=== PATIENT | male | born 1960 | race Caucasian/White ===

== ENCOUNTER 2016-07-02 21:48 | Emergency (ER) ==
[2016-07-02] MEDS ORDERED: NITROGLYCERIN SL PRN (21:56)
[2016-07-02] MEDS ORDERED: ASPIRIN PO STA (21:56)
[2016-07-02] MEDS ORDERED: NITROGLYCERIN TOP ONE (21:57)
[2016-07-02 22:13] LABS: MANUAL DIFF NEEDED? NO
[2016-07-02 22:21] LABS: BASO% 0.7 % (0.0-0.8); EOS# 0.34 X1000 (0.0-0.7); EOS% 4.8 % (0.0-10.0); HEMATOCRIT 48.2 % (42.0-52.0); LYMPH# 2.57 X1000 (1.2-3.4); LYMPH% 36.1 % (20.5-51.1); MCH 31.9 PG (27-31); MCHC 33.2 g/dL (33-37); MONO# 0.72 X1000 (0.11-0.59); MONO% 10.1 % (1.7-9.3); MPV 10.5 FL (7.4-10.4); NEUT% 48.3 % (42.2-75.2); PLT 194 X1000 (130-400); RBC 5.02 XMIL (4.7-6.1)
[2016-07-02 22:48] LABS: AGAP 14; ALKALINE PHOSPHATASE 36 U/L (32-122); BUN 19 mg/dL (8-22); CALCIUM 8.8 mg/dL (8.8-10.2); CHLORIDE 100 mmol/L (98-107); CK PROFILE 203 U/L (24-204); COSMO 280; GOT 23 U/L (10-34); GPT 20 U/L (10-44); MAGNESIUM 2.1 mg/dL (1.5-2.7); POTASSIUM 3.9 mmol/L (3.5-5.1); SODIUM 139 mmol/L (136-145); TCO2 25 mmol/L (25-35); TOTAL BILIRUBIN 0.58 mg/dL (0.20-1.00); TOTAL PROTEIN 6.9 g/dL (6.3-8.3)
--- NOTE | 2016-07-02 23:18 | PROVIDER DOCUMENTATION ---
HPI-Chest Pain <Rocio Escalante - Last Filed: 07/03/16 00:29> <Kenneth Kline - Last Filed: 07/03/16 01:13> - General Chief Complaint: Chest Pain Stated Complaint: CP Time Seen by Provider: 07/02/16 22:18 Allergies/Adverse Reactions: Patient Allergies Allergy/AdvReac Type Severity Reaction Status Date / Time No Known Allergies Allergy Verified 07/02/16 22:18 Home Medications: Home Medication List Medication Instructions Recorded Confirmed Last Taken Type Amlodipine Besylate [Norvasc] 5 mg PO DAILY #30 tablet 07/02/16 Unknown Rx - History of Present Illness-CP Nature of Presenting Problem: Pt has had an aching CP for a week that has not gotten any better. He denies N/V , dizziness. The pain doesn't radiate. Pt has gerd and HTN (Kenneth Kline) Review of Systems - Adult - REVIEW OF SYSTEMS - ADULT Constitutional: reports: no symptoms reported. denies: chills, fever, fatique, night sweats, weight gain, weight loss Eyes: reports: no symptoms reported. denies: discharge, dry eyes, decreased vision, blurred vision, double vision, redness Ears, Nose, Mouth & Throat: reports: no symptoms reported. denies: ear discharge, ear pain, hearing loss, nose pain, loose teeth, mouth swelling, hoarseness, throat pain, throat swelling Cardiovascular: reports: see HPI, chest pain. denies: edema, heart murmur, irregular heart rate, orthopnea, palpitations, poor circulation, PND, syncope Respiratory: reports: no symptoms reported. denies: chronic cough, cough, dyspnea on exertion, hemoptysis, pleurisy, shortness of breath, wheezing Gastrointestinal: reports: no symptoms reported. denies: abdominal pain, hematemesis, constipation, diarrhea, frequent heartburn, nausea, poor appetite, rectal bleeding, vomiting Genitourinary: reports: no symptoms reported. denies: dysuria, discharge, flank pain, hematuria, hesitency, urinary retention, urgency Musculoskeletal: reports: no symptoms reported. denies: bone pain, back pain, frequent leg cramps, joint swelling, muscle weakness, neck pain Integumentary: reports: no symptoms reported. denies: hives, hair loss, itching , mole changes, nail changes, rash, skin sores/ulcer, skin thickening Neurological: reports: no symptoms reported. denies: ataxia, dizziness/vertigo , loss of balance, numbness, paresthesia, seizure, slurred speech, syncope, tremors Psychiatric: reports: no symptoms reported. denies: anxiety, anti-depressant use, alcohol/drug dependence, emotional problems, insomnia, suicidal thoughts Endocrine: reports: no symptoms reported. denies: change in skin pigment, excessive sweating, goiter, heat intolerance, increased hunger, increased thirst Hematologic/Lymphatic: reports: no symptoms reported. denies: blood clots, easy bruising, low blood count, lymphedema, prolonged bleeding, swollen lymph nodes, transfusions Allergic/Immunologic: reports: no symptoms reported. denies: allergic reactions , allergic rhinitis, asthma, food allergy, frequent infections, positive PPD, urticaria All Other Systems: Reviewed and Negative <Kenneth Kline - Last Filed: 07/03/16 01:13> Past History - Adult - PAST MEDICAL HISTORY-ADULT Review of Records: reports: Old Records Reviewed, Nursing Assessment Review, Medications Reviewed, Social history reviewed & non-contributory. Major Childhood Illnesses: reports: denies history Cardiovascular: reports: HTN Respiratory: reports: denies history Gastrointestinal: reports: GERD Obstetrical/Gynecological: reports: denies history Genitourinary: reports: denies history Musculoskeletal: reports: denies history Neurological: reports: denies history Endocrine/Immune: reports: denies history Other Conditions: reports: denies history - PRIOR SURGERIES/PROCEDURES Surgical/Procedure History: reports: reviewed, not pertinent - PRIOR HOSPITALIZATIONS Prior Hospitalizations: reports: none - IMMUNIZATION STATUS Childhood Immunizations: See Nurse Assessment Flu Vaccine: See Nurse Assessment - FAMILY HISTORY Family History: reviewed, not pertinent - SOCIAL HISTORY Smoking: denies Substance Use: alcohol Alcohol Use Frequency: every day Number of drinks per typical drinking period:: 1 drink Living Situation: family <Kenneth Kline - Last Filed: 07/03/16 01:13> Physical Exam-General - PHYSICAL EXAM-ADULT Initial Vital Signs Reviewed: Yes - CONSTITUTIONAL General Appearance: appears well, alert, no apparent distress - EYES Eyes: PERRL/EOMI, fundi clear, no AV nicking - HEAD, EARS, NOSE, MOUTH & THROAT HENMT: normocephalic/atraumatic, moist mucous membranes, normal ENT inspection - NECK Neck: non-tender, full range of motion - RESPIRATORY Respiratory: chest non-tender, lungs clear, normal breath sounds, no pleuratic chest pain, no respiratory distress - CARDIOVASCULAR Cardiovascular: normal peripheral pulses, regular rate, rhythm - GASTROINTESTINAL (ABDOMEN) Abdominal Exam: normal bowel sounds, non tender, soft - MUSCULOSKELETAL Back Exam: normal inspection, no vertebral tenderness, CVA tenderness Extremity: normal range of motion, non-tender, normal gait, normal inspection - SKIN Integumentary: normal color, normal turgor, warm/dry - NEUROLOGIC Neurologic: manager paid II-XII nml as tested, grossly normal - PSYCHIATRIC Psych/Mental Status: normal mood/affect, normal thought content, normal thought process, oriented x 3 <Kenneth Kline - Last Filed: 07/03/16 01:13> Progress - EKG 1 Time of EKG reading by physician:: 21:51 EKG Read and Signed by:: Ilan Camilo EKG Interpretation (*Must complete 3 of following elements*): Abnormal Rate: 69 Rhythm: NSR ST Wave: non-specific ST changes 2 Time of EKG reading by physician:: 00:15 EKG Read and Signed by:: Ilan Camilo EKG Interpretation (*Must complete 3 of following elements*): Abnormal Rate: 67 Rhythm: NSR Cando: normal Comments: anterior infarct, age undetermined <Rocio Escalante - Last Filed: 07/03/16 00:29> - XRAY 1 XRAY Study: Chest XRAY Interpretation: increased lower lobe interstitial markings (hcb) <Kenneth Kline - Last Filed: 07/03/16 01:13> - PLAN OF CARE/RESULTS Progress/Plan/Lab Results: Laboratory Tests 07/02/16 07/02/16 07/02/16 22:05 22:05 22:05 WBC 7.12 RBC 5.02 Hgb 16.0 Hct 48.2 MCV 96.0 MCH 31.9 H MCHC 33.2 RDW Std Deviation 13.2 Plt Count 194 MPV 10.5 H Immature Gran % (Auto) 0.0 Neut % (Auto) 48.3 Lymph % (Auto) 36.1 [place] % (Auto) 10.1 H Eos % (Auto) 4.8 Baso % (Auto) 0.7 Immature Gran # (Auto) 0.00 Neut # (Auto) 3.44 Lymph # (Auto) 2.57 [place] # (Auto) 0.72 H Eos # (Auto) 0.34 Baso # (Auto) 0.05 Sodium 139 Potassium 3.9 Chloride 100 Carbon Dioxide 25 Anion Gap 14 BUN 19 Creatinine 1.1 Estimated GFR/1.73 m2 > 60 BUN/Creatinine Ratio 17 Glucose 99 Calculated Osmolality 280 Calcium 8.8 Magnesium 2.1 Total Bilirubin 0.58 AST 23 ALT 20 Alkaline Phosphatase 36 Creatine Kinase 203 Troponin T Ioq-M-Lucbxrfjrjv Pept 11 Total Protein 6.9 Albumin 4.0 Globulin 2.9 Albumin/Globulin Ratio 1.4 07/02/16 22:05 WBC RBC Hgb Hct MCV MCH MCHC RDW Std Deviation Plt Count MPV Immature Gran % (Auto) Neut % (Auto) Lymph % (Auto) [place] % (Auto) Eos % (Auto) Baso % (Auto) Immature Gran # (Auto) Neut # (Auto) Lymph # (Auto) [place] # (Auto) Eos # (Auto) Baso # (Auto) Sodium Potassium Chloride Carbon Dioxide Anion Gap BUN Creatinine Estimated GFR/1.73 m2 BUN/Creatinine Ratio Glucose Calculated Osmolality Calcium Magnesium Total Bilirubin AST ALT Alkaline Phosphatase Creatine Kinase Troponin T < 0.010 [id number]-Jvuuqtqwosx Pept Total Protein Albumin Globulin Albumin/Globulin Ratio Orders Category Date Time Status Cardiac Monitoring DIRECTED Care 07/02/16 21:57 Active Cardiac Monitoring DIRECTED Care 07/02/16 21:57 Inactive Saline Loc NOW Care 07/02/16 21:57 Active CHEST-2 VIEWS [RAD] Stat Exams 07/02/16 21:57 Taken CBC WITH ELECTRONIC DIFF [HEME] Stat Lab 07/02/16 22:05 Completed CK PROFILE [SP CHEM] Stat Lab 07/02/16 22:05 Completed COMPREHENSIVE METABOLIC PANEL [CHEM] Stat Lab 07/02/16 22:05 Completed D-DIMER [CHEM] Stat Lab 07/02/16 23:00 Ordered MAGNESIUM [CHEM] Stat Lab 07/02/16 22:05 Completed PRO B-NATRIURETIC PEPTIDE Stat Lab 07/02/16 22:05 Completed PROTIME WITH INR [COAG] Stat Lab 07/02/16 23:00 Ordered PTT [COAG] Stat Lab 07/02/16 23:00 Ordered TROPONIN T Stat Lab 07/02/16 22:05 Completed Aspirin Med 07/02/16 21:56 Discontinued 325 mg PO STAT STA Nitroglycerin Med 07/02/16 21:57 Discontinued 1 inch TOP NOW ONE Nitroglycerin Sl [Nitroglycerin] Med 07/02/16 21:56 Active 0.4 mg SL Q5M PRN PRN EKG [EKG] Stat Ther 07/02/16 21:57 Ordered Vital Signs - 24 hr 07/02/16 21:50 Temperature 97.6 F Pulse Rate 61 Respiratory 18 Rate Blood Pressure 171/95 O2 Sat by Pulse 100 Oximetry Laboratory Tests 07/02/16 07/02/16 07/02/16 22:05 22:05 22:05 WBC 7.12 RBC 5.02 Hgb 16.0 Hct 48.2 MCV 96.0 MCH 31.9 H MCHC 33.2 RDW Std Deviation 13.2 Plt Count 194 MPV 10.5 H Immature Gran % (Auto) 0.0 Neut % (Auto) 48.3 Lymph % (Auto) 36.1 [place] % (Auto) 10.1 H Eos % (Auto) 4.8 Baso % (Auto) 0.7 Immature Gran # (Auto) 0.00 Neut # (Auto) 3.44 Lymph # (Auto) 2.57 [place] # (Auto) 0.72 H Eos # (Auto) 0.34 Baso # (Auto) 0.05 D-Dimer Sodium 139 Potassium 3.9 Chloride 100 Carbon Dioxide 25 Anion Gap 14 BUN 19 Creatinine 1.1 Estimated GFR/1.73 m2 > 60 BUN/Creatinine Ratio 17 Glucose 99 Calculated Osmolality 280 Calcium 8.8 Magnesium 2.1 Total Bilirubin 0.58 AST 23 ALT 20 Alkaline Phosphatase 36 Creatine Kinase 203 Troponin T Xly-Y-Kdwenghxcge Pept 11 Total Protein 6.9 Albumin 4.0 Globulin 2.9 Albumin/Globulin Ratio 1.4 07/02/16 07/03/16 07/03/16 22:05 00:05 00:05 WBC RBC Hgb Hct MCV MCH MCHC RDW Std Deviation Plt Count MPV Immature Gran % (Auto) Neut % (Auto) Lymph % (Auto) [place] % (Auto) Eos % (Auto) Baso % (Auto) Immature Gran # (Auto) Neut # (Auto) Lymph # (Auto) [place] # (Auto) Eos # (Auto) Baso # (Auto) D-Dimer Sodium Potassium Chloride Carbon Dioxide Anion Gap BUN Creatinine Estimated GFR/1.73 m2 BUN/Creatinine Ratio Glucose Calculated Osmolality Calcium Magnesium Total Bilirubin AST ALT Alkaline Phosphatase Creatine Kinase 187 Troponin T < 0.010 < 0.010 Xku-E-Jjkqcsnyqlr Pept Total Protein Albumin Globulin Albumin/Globulin Ratio 07/03/16 00:30 WBC RBC Hgb Hct MCV MCH MCHC RDW Std Deviation Plt Count MPV Immature Gran % (Auto) Neut % (Auto) Lymph % (Auto) [place] % (Auto) Eos % (Auto) Baso % (Auto) Immature Gran # (Auto) Neut # (Auto) Lymph # (Auto) [place] # (Auto) Eos # (Auto) Baso # (Auto) D-Dimer < 0.10 Sodium Potassium Chloride Carbon Dioxide Anion Gap BUN Creatinine Estimated GFR/1.73 m2 BUN/Creatinine Ratio Glucose Calculated Osmolality Calcium Magnesium Total Bilirubin AST ALT Alkaline Phosphatase Creatine Kinase Troponin T Psj-S-Glsqmxtnnlj Pept Total Protein Albumin Globulin Albumin/Globulin Ratio Orders Category Date Time Status Cardiac Monitoring DIRECTED Care 07/02/16 21:57 Active Cardiac Monitoring DIRECTED Care 07/02/16 21:57 Inactive Saline Loc NOW Care 07/02/16 21:57 Active CHEST-2 VIEWS [RAD] Stat Exams 07/02/16 21:57 Taken CBC WITH ELECTRONIC DIFF [HEME] Stat Lab 07/02/16 22:05 Completed CK PROFILE [SP CHEM] Stat Lab 07/02/16 22:05 Completed CK PROFILE [SP CHEM] Stat Lab 07/03/16 00:05 Completed COMPREHENSIVE METABOLIC PANEL [CHEM] Stat Lab 07/02/16 22:05 Completed D-DIMER [CHEM] Stat Lab 07/02/16 23:00 Completed MAGNESIUM [CHEM] Stat Lab 07/02/16 22:05 Completed PRO B-NATRIURETIC PEPTIDE Stat Lab 07/02/16 22:05 Completed PROTIME WITH INR [COAG] Stat Lab 07/02/16 23:00 Received PTT [COAG] Stat Lab 07/02/16 23:00 Received TROPONIN T Stat Lab 07/02/16 22:05 Completed TROPONIN T Stat Lab 07/03/16 00:05 Completed Amlodipine [Norvasc] Med 07/02/16 23:22 Discontinued 5 mg PO NOW ONE Aspirin Med 07/02/16 21:56 Discontinued 325 mg PO STAT STA Hydralazine [Apresoline] Med 07/03/16 00:38 Discontinued 10 mg IV NOW ONE Nitroglycerin Med 07/02/16 21:57 Discontinued 1 inch TOP NOW ONE Nitroglycerin Sl [Nitroglycerin] Med 07/02/16 21:56 Active 0.4 mg SL Q5M PRN PRN EKG [EKG] Stat Ther 07/02/16 00:00 Ordered EKG [EKG] Stat Ther 07/02/16 21:57 Ordered Vital Signs - 24 hr 07/02/16 07/02/16 07/03/16 21:50 23:50 00:56 Temperature 97.6 F Pulse Rate 61 65 71 Respiratory 18 14 19 Rate Blood Pressure 171/95 171/115 143/102 O2 Sat by Pulse 100 99 99 Oximetry (Kenneth Kline) Departure <Rocio Escalante - Last Filed: 07/03/16 00:29> - Departure Time of Disposition Order: 23:23 Certified Medical Emergency: Emergent <Kenneth Kline - Last Filed: 07/03/16 01:13> - Departure DIAGNOSIS: HTN (hypertension) with goal to be determined Disposition: HOME 01 Condition: Good Additional Instructions: follow up with for repeat CXR in 6 weeks. Follow up with cardiology if CP continues or return to the ER ED Follow Up Instructions: You have been treated by a care provider in the Emergency Department. These instructions are being provided to you so you can have an understanding of how to care for yourself upon discharge. Upon discharge from the Emergency Department, you are responsible for making arrangements for follow-up care by a physician of your choice. Take all prescribed medications as directed. Return to the Emergency Department immediately for any new or worsening symptoms. You may call the Physician Referral phone number at [phone] to obtain a list of Physicians who are taking new patients. Prescriptions: Amlodipine Besylate [Norvasc] 5 mg PO DAILY #30 tablet Referrals: Britton Craft MD [STAFF PHYSICIAN] - Attestation - Physician/ EVANS Attestation Patient care was provided by Advanced Practice Provider:: Yes Advanced Practice Provider:: Kenneth Kline Advanced Practice Provider documentation review:: The Mid-level provider documentation, treatment plan and medical decision making was reviewed by the physician who agrees with all treatment and medical decision making by the MLP. <Kenneth Kline - Last Filed: 07/03/16 01:13> Physician Attestation - Physician Attestation I, the provider, attest to the following statement:: Kenneth Kline Physician documentation Attestation:: This documentation recorded by the scribe accurately reflects the service I personally performed and the decisions made by me. <Kenneth Kline - Last Filed: 07/03/16 01:13>
[2016-07-02] MEDS ORDERED: NORVASC PO ONE (23:22)
[2016-07-03] MEDS ORDERED: APRESOLINE IV ONE (00:38)
[2016-07-03 01:19] LABS: INR 1.08; PTT 23.7 Seconds (22.0-36.0)
[2016-07-03 01:24] VITALS: BP 143/97
--- NOTE | 2016-07-03 08:01 | Diag Imaging Result Document ---
PROCEDURE NAME: CHEST-2 VIEWS - 07/02/2016 FRONTAL AND LATERAL CHEST, TWO VIEWS: FINDINGS: The lungs are hyperexpanded. There is increased AP diameter to the chest. There are large bullae in the upper lungs. There is crowding of the vessels inferiorly. The heart is not enlarged. No pleural effusions. No pneumonia. IMPRESSION: Emphysema.
--- NOTE | 2016-07-03 09:22 | EKG Report ---
Test Performed on : 07/02/2016 9:51:46 PM Test Reason : Chest Pain Blood Pressure : / mmHG Vent. Rate : 069 BPM Atrial Rate : 069 BPM P-R Int : 182 ms QRS Dur : 070 ms QT Int : 342 ms P-R-T Axes : 017 058 049 degrees QTc Int : 366 ms Normal sinus rhythm. Nonspecific ST abnormality Abnormal ECG No previous ECGs available Unconfirmed Result
--- NOTE | 2016-07-03 09:24 | EKG Report ---
Test Performed on : 07/03/2016 00:15:47 AM Test Reason : CP Blood Pressure : / mmHG Vent. Rate : 067 BPM Atrial Rate : 067 BPM P-R Int : 190 ms QRS Dur : 076 ms QT Int : 370 ms P-R-T Axes : 011 038 047 degrees QTc Int : 390 ms Normal sinus rhythm. Anterior infarct , age undetermined Abnormal ECG When compared with ECG of 02-JUL-2016 21:51, (Unconfirmed) Anterior infarct is now present Unconfirmed Result
== END 2016-07-03 01:33 | disposition home or self-care (01) ==
LOC: ED 21:48
DX: I10 Essential (primary) hypertension (principal); R07.9 Chest pain, unspecified; R94.31 Abnormal electrocardiogram [ECG] [EKG]
CPT/HCPCS: 71020; 80053; 82550; 83735; 83880; 84484; 85025; 85379; 85610; 85730; 93005; 99283